=== PATIENT | female | born 2000 | race Caucasian/White ===

== ENCOUNTER 2024-10-30 19:22 | Emergency (ER) | payer MEDICAID, OTHER ==
[~2024-10-30] VITALS: Ht 162.6 cm; Wt 93.9 kg
[2024-10-30 21:17] VITALS: BP 109/70; TEMP 99.2; O2SAT 96
== END 2024-10-30 21:35 | disposition left against medical advice (07) ==
LOC: ER 19:28
DX: M54.89 Other dorsalgia (principal); Z53.21 Procedure and treatment not carried out due to patient leaving prior to being seen by health care provider